=== PATIENT | female | born 1945 | race Caucasian/White ===

== ENCOUNTER 2016-08-31 15:59 | Inpatient (IN) | payer OTHER, MEDICARE ==
[~2016-08-31] VITALS: Ht 172.7 cm; Wt 139.8 kg
[~2016-08-31 15:59] MED LIST: ADVA250A INH; AMIT10 PO; ASPI81TA11 PO; B-12100T2 PO; B-650TAB2 PO; CITA20TA4 PO; COZA100T PO; CYCL-36 PO; EPIP0.3I IM; FLOV50AE INH; FOLI200T PO; GABA300C3 PO; GLIP5 OR; HYDR-2768 PO; LEVA1.2519 NEB; LEVO100T75 PO; MELO7.5 PO; METH2.5 PO; MONT10TA2 PO; PRED5TAB PO; PROT40TA PO; RANI150C PO; TEMA15CA PO; TESS200C PO; TOPA25TA8 PO; TOPR50TA PO; ULTR50TA PO; XANA0.5T PO; XOPE0.63 INH; ZYRT10TA12 PO
[2016-08-31 16:31] VITALS: BP 211/71; PULSE 78; RESP 16; TEMP 99.2; O2SAT 97
[2016-08-31] MEDS ORDERED: LEVO150T7 PO (17:10)
[2016-08-31] MEDS ORDERED: ALPR.25 PO (17:10)
[2016-08-31] MEDS ORDERED: MONT10TA2 PO (17:10)
[2016-08-31] MEDS ORDERED: FLUT50SP EACH NARE (17:10)
[2016-08-31] MEDS ORDERED: [UNRECOGNIZED DRUG - CODE] EACH NARE (17:10)
[2016-08-31] MEDS ORDERED: LACROIN EACH EYE (17:10)
[2016-08-31] MEDS ORDERED: METH5INJ IM (17:10)
[2016-08-31] MEDS ORDERED: ROPI.5 PO (17:10)
[2016-08-31] MEDS ORDERED: PRIL20CA9 PO (17:10)
[2016-08-31] MEDS ORDERED: AMAR4TAB PO (17:10)
[2016-08-31] MEDS ORDERED: TOPA25TA8 PO (17:10)
[2016-08-31] MEDS ORDERED: ADVA250A INH (17:10)
[2016-08-31] MEDS ORDERED: ZANT150T2 PO (17:10)
[2016-08-31] MEDS ORDERED: XOPEAER4 INH (17:10)
[2016-08-31] MEDS ORDERED: METO-309 PO (17:10)
[2016-08-31] MEDS ORDERED: MORP1TAB24 PO (17:10)
[2016-08-31] MEDS ORDERED: LYRI100C PO (17:10)
[2016-08-31] MEDS ORDERED: VITACAP7 PO (17:10)
[2016-08-31] MEDS ORDERED: CYMB60CA PO (17:10)
[2016-08-31] MEDS ORDERED: TIZA4TAB PO (17:10)
[2016-08-31] MEDS ORDERED: LOSA100T PO (17:10)
[2016-08-31] MEDS ORDERED: TOPA100T11 PO (17:10)
[2016-08-31] MEDS ORDERED: PRED1 PO (17:10)
[2016-08-31] MEDS ORDERED: FOLI5CAP PO (17:10)
[2016-08-31] MEDS ORDERED: ASPI1TAB69 PO (17:10)
[2016-08-31] MEDS ORDERED: EYE-TAB2 (17:10)
[2016-08-31] MEDS ORDERED: CALCTAB44 PO (17:10)
[2016-08-31] MEDS ORDERED: SODIUM CHLORIDE 0.9% FLUSH 5 ML FLUSH IVF PRN ×2 (17:15→19:30)
[2016-08-31 17:37] LABS: AUTOMATED NEUTROPHIL # 8.5 TH/MM3 (1.8-7.7); BASOPHIL # 0.1 TH/MM3 (0-0.2); BASOPHIL % 0.6 % (0.0-2.0); EOSINOPHIL # 0.6 TH/MM3 (0-0.4); EOSINOPHIL % 4.8 % (0.0-4.0); HEMATOCRIT 40.2 % (35.0-46.0); HEMO FLAGS DIFF FINAL; LYMPH % 23.7 % (9.0-44.0); MEAN CELL VOLUME 94.1 FL (80.0-100.0); MEAN CORPUSCULAR HEMOGLOBIN 31.6 PG (27.0-34.0); MEAN CORPUSCULAR HGB CONC 33.6 % (32.0-36.0); MONO % 3.7 % (0.0-8.0); NEUT % 67.2 % (16.0-70.0); PLATELET COUNT 228 TH/MM3 (150-450); RED BLOOD COUNT 4.27 MIL/MM3 (4.00-5.30); RED CELL DISTRIBUTION WIDTH 12.7 % (11.6-17.2); WHITE BLOOD COUNT 12.7 TH/MM3 (4.0-11.0)
[2016-08-31 17:48] LABS: CHLORIDE 108 MEQ/L (98-107); POTASSIUM 3.3 MEQ/L (3.5-5.1); SODIUM (NA) 144 MEQ/L (136-145)
[2016-08-31 17:52] LABS: PROTHROMBIN TIME - PATIENT 10.9 SEC (9.8-11.6)
[2016-08-31 17:53] LABS: ANION GAP 11 MEQ/L (5-15); BICARBONATE 25.5 MEQ/L (21.0-32.0); BLOOD UREA NITROGEN 11 MG/DL (7-18)
--- NOTE | 2016-08-31 17:55 | RADHPO ---
EXAM DATE/TIME: 08/31/2016 17:33 [facility] COMPARISON: No previous studies available for comparison. INDICATIONS : Dizziness. Evaluate for cerebrovascular accident. RADIATION DOSE: 62.61 CTDIvol (mGy) MEDICAL HISTORY : Hypertension. Diabetes mellitus type 2. SURGICAL HISTORY : None. ENCOUNTER: Initial ACUITY: 1 day PAIN SCALE: 6/10 LOCATION: cranial TECHNIQUE: Multiple contiguous axial images were obtained of the head. Using automated exposure control and adj ustment of the mA and/or kV according to patient size, radiation dose was kept as low as reasonably a chievable to obtain optimal diagnostic quality images. FINDINGS: CEREBRUM: The ventricles are normal for age. No evidence of midline shift, mass lesion, hemorrhage or acute in farction. No extra-axial fluid collections are seen. POSTERIOR FOSSA: The cerebellum and brainstem are intact. The 4th ventricle is midline. The cerebellopontine angle i s unremarkable. EXTRACRANIAL: The visualized portion of the orbits is intact. SKULL: The calvaria is intact. No evidence of skull fracture. CONCLUSION: Age-appropriate atrophy. No acute findings. Derick Cordova MD on August 31, 2016 at 17:53 Board Certified Radiologist. This report was verified electronically.
[2016-08-31 17:56] LABS: ALT (GPT) 44 U/L (10-53); AST (GOT) 13 U/L (15-37); GLOMERULAR FILTRATION RATE 64 ML/MIN (>89)
[2016-08-31 17:57] LABS: TOTAL BILIRUBIN ADULT 0.6 MG/DL (0.2-1.0)
[2016-08-31 17:59] LABS: ALKALINE PHOSPHATASE 209 U/L (45-117)
[2016-08-31 18:21] VITALS: BP 184/85; PULSE 83; RESP 16; O2SAT 97
[2016-08-31] MEDS ORDERED: ONDANSETRON HCL 4 MG/2 ML VIAL IV ONE (18:30)
[2016-08-31 19:00] VITALS: BP 177/84; PULSE 76; RESP 16; O2SAT 96
--- NOTE | 2016-08-31 19:01 | PD ---
HPI Chief Complaint: Neuro Symptoms/ Deficits Time Seen by Provider: 17:09 Travel History International Travel<30 days: No Contact w/Intl Traveler<30days: No Traveled to known affect area: No History of Present Illness HPI This 71-year-old woman who presents to the emergency department complaining of feeling sick all week, and then today while sitting out had the abrupt onset of bilateral upper extremity paresthesias, numbness and tingling around her face, feeling fuzzy, and having expressive aphasia. Symptoms lasted about 30 minutes or so. Blood pressure is been elevated since that time all day in the 160s to 180s over 100s. She otherwise had been feeling K. She developed some diarrhea this morning she describes as some slightly loose stools. She took some Lomotil after that and hasn't had any recurrence. Stomach has been a little bit queasy. No chest pain. She did have some palpitations when she laid back down after the episode. She otherwise had been feeling generally well and healthy. 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 Hypertension GERD Asthma Fibromyalgia Tetanus Vaccination: < 5 Years Menopausal: Yes Social History Alcohol Use: No Tobacco Use: No (quit 1989) Allergies-Medications (Allergen,Severity, Reaction): Coded Allergies: Codeine (Verified Allergy, Severe, HIVES/SHORTNESS OF BREATH/ITCHING, 08/31) ABLE TO TAKE MORPHINE AND TRAMADOL BUT NOT ANY OTHER PAIN MEDS PER P.A./PATIENT Common Ragweed (Verified Allergy, Severe, 08/31/16) Cultivated Oat Pollen (Verified Allergy, Severe, 08/31/16) Dust (Verified Allergy, Severe, 08/31/16) Gentamicin (Verified Allergy, Severe, 08/31/16) Iodine (Verified Allergy, Severe, 08/31/16) Molds and Smuts (Verified Allergy, Severe, 08/31/16) Penicillin (Verified Allergy, Severe, 08/31/16) Shellfish (Verified Allergy, Severe, 08/31/16) Tetracycline (Verified Allergy, Severe, 08/31/16) Vancomycin (Verified Allergy, Severe, 08/31/16) [place] (Verified Allergy, Severe, 08/31/16) Reported Meds & Prescriptions Reported Meds & Active Scripts Active Reported Morphine ER (Morphine Sulfate) 15 Mg Tab 15 Mg PO BID Xopenex Hfa 15 GM Inh (Levalbuterol 15 GM Inh) 45 Mcg/Act Aer 90 Mcg INH Q6HR PRN Shake well before using. (1 puff = 45 mcg) Advair Diskus Inh (Fluticasone-Salmeterol Inh) 250-50 Mcg/Blist Aer 1 Puff INH DAILY Rinse mouth after use. Refresh Lacri-Lube Opth Ointment (Artificial Tear Opth Ointment) 1 Oint EACH EYE HS Xanax (Alprazolam) 0.25 Mg Tab 0.25 Mg PO BID PRN Requip (Ropinirole HCl) 0.5 Mg Tab 0.5 Mg PO HS Lopressor (Metoprolol Tartrate) 50 Mg Tab 50 Mg PO HS Singulair (Montelukast Sodium) 10 Mg Tab 10 Mg PO DAILY Methotrexate Inj 50 Mg/2 Ml Inj 15 Mg IM WEEKLY Prednisone 1 Mg Tab 3 Mg PO DAILY Calcium Citrate+ D (Calcium Citrate-Vitamin D) 250-200 Mg-Unit Tab 2 Tab PO BID Folic Acid 5 Mg Cap 2 Mg PO DAILY Eye-Vites (Multiple Vitamins W/ Minerals) 1 Tab Tab B Complex (B-Complex Vitamins) 1 Cap 1 Cap PO DAILY Topamax (Topiramate) 100 Mg Tab 100 Mg PO HS Topamax (Topiramate) 25 Mg Tab 25 Mg PO DAILY Lyrica (Pregabalin) 100 Mg Cap 100 Mg PO BID Zantac (Ranitidine HCl) 150 Mg Tab 150 Mg PO HS Tizanidine (Tizanidine HCl) 4 Mg Tab 4 Mg PO BID PRN Afrin Saline Nasal Mist (Sodium Chloride) 0.65% [place] 2 [place] EACH NARE DIRECTED Fluticasone Nasal [place] 50 Mcg/Act Naspr 50 Mcg EACH NARE DAILY 50 mcg/spray Amaryl (Glimepiride) 4 Mg Tab 4 Mg PO BID Take with breakfast or the first main meal Cymbalta DR (Duloxetine HCl) 60 Mg Capdr 60 Mg PO BID Levothyroxine (Levothyroxine Sodium) 150 Mcg Tab 150 Mcg PO DAILY Losartan (Losartan Potassium) 100 Mg Tab 100 Mg PO DAILY Aspirin 81 Mg Tabdr 81 Mg PO HS Prilosec (Omeprazole) 20 Mg Cap 40 Mg PO DAILY Review of Systems Except as stated in HPI: all other systems reviewed are Neg Physical Exam Narrative GENERAL: Obese 71-year-old woman, no acute distress. SKIN: Warm and dry. HEAD: Atraumatic. Normocephalic. EYES: Pupils equal and round. No scleral icterus. No injection or drainage. ENT: No nasal bleeding or discharge. Mucous membranes pink and moist. NECK: Trachea midline. No JVD. CARDIOVASCULAR: Regular rate and rhythm. No murmur appreciated. RESPIRATORY: No accessory muscle use. Clear to auscultation. Breath sounds equal bilaterally. GASTROINTESTINAL: Abdomen soft, non-tender, nondistended. Hepatic and splenic margins not palpable. MUSCULOSKELETAL: No obvious deformities. No edema. NEUROLOGICAL: Awake and alert. No obvious cranial nerve deficits. No facial asymmetry. Motor strength full and equal upper and lower extremities. Normal finger to nose. She describes some asymmetry of sensation especially in her right upper extremity being a little bit decreased. PSYCHIATRIC: Appropriate mood and affect; insight and judgment normal. Data Data Last Documented VS Vital Signs Date Time Temp Pulse Resp B/P Pulse Ox O2 Delivery O2 Flow Rate FiO2 08/31/16 18:21 83 16 184/85 97 Room Air 08/31/16 16:31 99.2 Orders Prothrombin Time / Inr (Pt) (08/31/16 17:09) Act Partial Throm Time (Ptt) (08/31/16 17:09) Complete Blood Count With Diff (08/31/16 17:09) Comprehensive Metabolic Panel (08/31/16 17:09) Troponin I (08/31/16 17:09) Ct Brain W/O Iv Contrast(Rout) (08/31/16 17:09) Ecg Monitoring (08/31/16 17:09) Iv Access Insert/Monitor (08/31/16 17:09) Oximetry (08/31/16 17:09) Sodium Chloride 0.9% Flush (Ns Flush) (08/31/16 17:15) Ondansetron Inj (Zofran Inj) (08/31/16 18:30) Bedside Glucose LUCA.AC&HS (08/31/16 19:22) ^ Blood Glucose Goal (Criteria (08/31/16 19:22) ^ Hypoglycemia 51 - 69 Mg/Dl (08/31/16 19:22) ^ Hypoglycemia 50 Mg/Dl Or < (08/31/16 19:22) ^ Notify Dr: Other (08/31/16 19:22) Dextrose 50% In Roly (Vial) Inj (D50w (Vi (08/31/16 19:30) Glucagon Inj (Glucagon Inj) (08/31/16 19:30) Insulin Aspart Supplemtl Scale (Novolog (08/31/16 21:00) Admit To Inpatient (08/31/16 ) Code Status (08/31/16 19:22) Vital Signs (Adult) Q4H (08/31/16 19:22) Nih Stroke Scale - Nihss .On admission and discharge (08/31/16 19:22) Neuro Checks Q2HX12,Q4H (08/31/16 19:22) Ot Request For Service (08/31/16:) Consult Pt Eval & Treat (08/31/16:22) Case Management Consult (08/31/16 ) Nursing Bedside Swallow Assess .ONCE (08/31/16 19:22) Scd Bilateral/Knee High LUCA.QSHIFT (08/31/16:22) Hemoglobin (Hgb) A1c (09/01/16 06:00) Lipid Profile (09/01/16 06:00) Mra Brain W/O Contrast (Cow) (08/31/16 ) Mri Brain W/O Contrast (08/31/16 ) Echo 2d Comp W/Dopp(Routine) (08/31/16 ) Resp Oxygen Steffen C Titrat 1-4 L (08/31/16 ) ^ Hold Medication (08/31/16:22) Sodium Chloride 0.9% Flush (Ns Flush) (08/31/16 21:00) Sodium Chloride 0.9% Flush (Ns Flush) (08/31/16 19:30) Sodium Chlor 0.9% 1000 Ml Inj (Ns 1000 M (08/31/16 19:22) Enalaprilat Inj (Vasotec Inj) (08/31/16 19:30) Pravastatin (Pravachol) (08/31/16 21:00) Bedside Glucose LUCA.AC&HS (08/31/16:22) Technical Project Lead / Telemetry LUCA.Q8H (08/31/16 19:22) Scd Bilateral/Knee High LUCA.BID (08/31/16 19:22) Curtis Bilateral/Knee High LUCA.QSHIFT (08/31/16 19:22) Inpatient Certification (08/31/16 ) Alprazolam (Xanax) (08/31/16 19:30) Aspirin Ec (Ecotrin Ec) (08/31/16 21:00) Duloxetine Dr (Germán Schultz) (08/31/16 21:00) Fluticasone Steffen Spr (Flonase Steffen Spr) (09/01/16 09:00) Folic Acid (Folate) (09/01/16 09:00) Levothyroxine (Synthroid) (09/01/16 06:00) Montelukast (Singulair) (09/01/16 09:00) Morphine Sr (Oramorph Sr) (08/31/16 21:00) Prednisone (Deltasone) (09/01/16 09:00) Pregabalin (Lyrica) (08/31/16 21:00) Ropinirole Hcl (Requip) (08/31/16 21:00) Tizanidine Hcl (Zanaflex) (08/31/16 19:30) Topiramate (Topamax) (09/01/16 09:00) Topiramate (Topamax) (08/31/16 21:00) Budeson-Formot 160-4.5 Mg Inh (Symbicort (09/01/16 09:00) Patient Own Medication (08/31/16 19:45) Neuro Checks Q4H (08/31/16 19:27) Activity Oob With Assistance (08/31/16 19:27) Diet 1800 Ada Cons Carb (09/01/16 Breakfast) Ondansetron Inj (Zofran Inj) (08/31/16 19:30) Bisacodyl Supp (Dulcolax Supp) (08/31/16 19:30) Comprehensive Metabolic Panel (09/01/16 06:00) Complete Blood Count With Diff (09/01/16 06:00) Scd Bilateral/Knee High LUCA.BID (08/31/16 19:27) Curtis Bilateral/Knee High LUCA.QSHIFT (08/31/16 19:27) Acetaminophen (Tylenol) (08/31/16 19:30) Famotidine (Pepcid) (08/31/16 21:00) Admit Order (Ed Use Only) (08/31/16 ) Labs Laboratory Tests Test 08/31/16 17:25 White Blood Count 12.7 TH/MM3 Red Blood Count 4.27 MIL/MM3 Hemoglobin 13.5 GM/DL Hematocrit 40.2 % Mean Corpuscular Volume 94.1 FL Mean Corpuscular Hemoglobin 31.6 PG Mean Corpuscular Hemoglobin 33.6 % Concent Red Cell Distribution Width 12.7 % Platelet Count 228 TH/MM3 Mean Platelet Volume 8.6 FL Neutrophils (%) (Auto) 67.2 % Lymphocytes (%) (Auto) 23.7 % Monocytes (%) (Auto) 3.7 % Eosinophils (%) (Auto) 4.8 % Basophils (%) (Auto) 0.6 % Neutrophils # (Auto) 8.5 TH/MM3 Lymphocytes # (Auto) 3.0 TH/MM3 Monocytes # (Auto) 0.5 TH/MM3 Eosinophils # (Auto) 0.6 TH/MM3 Basophils # (Auto) 0.1 TH/MM3 CBC Comment DIFF FINAL Differential Comment Prothrombin Time 10.9 SEC Prothromb Time International 1.0 RATIO Ratio Activated Partial 27.0 SEC Thromboplast Time Sodium Level 144 MEQ/L Potassium Level 3.3 MEQ/L Chloride Level 108 MEQ/L Carbon Dioxide Level 25.5 MEQ/L Anion Gap 11 MEQ/L Blood Urea Nitrogen 11 MG/DL Creatinine 0.87 MG/DL Estimat Glomerular Filtration 64 ML/MIN Rate Random Glucose 145 MG/DL Calcium Level 8.7 MG/DL Total Bilirubin 0.6 MG/DL Aspartate Amino Transf 13 U/L (AST/SGOT) Alanine Aminotransferase 44 U/L (ALT/SGPT) Alkaline Phosphatase 209 U/L Troponin I LESS THAN 0.02 NG/ML Total Protein 7.2 GM/DL Albumin 3.5 GM/DL [facility] Medical Decision Making Medical Screen Exam Complete: Yes Emergency Medical Condition: Yes Interpretation(s) My review of EKG: Normal sinus rhythm at a rate of 77, normal axis, normal intervals, some nonspecific inferolateral ST depressions. LABS: CBC remarkable for mild leukocytosis. CMP generally unremarkable. Troponin negative. Coags unremarkable. CT head: Negative. Differential Diagnosis TIA, electrolyte abnormality, ACS, hyperventilation or anxiety, other Narrative Course Medical decision making 71-year-old with unusual episode of upper extremity paresthesias, word finding difficulties and expressive aphasia, feeling ill. Multiple other concomitant symptoms including feeling generally weak, some diarrhea this morning, and some palpitations. EKG shows some nonspecific lateral ST changes, but history is otherwise not suggestive of ACS. Troponin is negative. A lecture lites are unremarkable. The question of whether or not this could've been the TIAs a little bit unclear. She had expressive aphasia but also had bilateral pressure any paresthesias which would be unusual. Nonetheless given her elevated blood pressure diabetes increased age and presence of a fascia as well as a time course of symptoms, she would be at moderate risk for short term recurrence of CVA by her ABCD 2 score. Given this, would recommend admission for observation further evaluation for TIA. Diagnosis Primary Impression: Altered mental status Qualified Code: R40.4 - Transient alteration of awareness Additional Impression: TIA (transient ischemic attack) Qualified Code: G45.9 - Transient cerebral ischemia, unspecified type Ish Emmanuel MD Aug 31, 2016 19:01
[2016-08-31] MEDS ORDERED: DEXTROSE 50% IN WATER 50 ML VIAL(D50) IV PUSH PRN (19:30)
[2016-08-31] MEDS ORDERED: ALPRAZolam 0.25 MG TAB PO PRN (19:30)
[2016-08-31] MEDS ORDERED: ACETAMINOPHEN 325 MG TAB PO PRN (19:30)
[2016-08-31] MEDS ORDERED: GLUCAGON 1 MG/ML VIAL OTHER PRN (19:30)
[2016-08-31] MEDS ORDERED: ENALAPRILAT 1.25 MG/ML VIAL IV PRN (19:30)
[2016-08-31] MEDS ORDERED: ONDANSETRON HCL 4 MG/2 ML VIAL IVP PRN (19:30)
[2016-08-31] MEDS ORDERED: BISACODYL 10 MG SUPP PR PRN (19:30)
[2016-08-31] MEDS ORDERED: LEVALBUTEROL PO PRN (19:45)
[2016-08-31] MEDS: INSULIN ASPART SUPPLEMENTAL SCALE SQ SCH (21:00)
[2016-08-31] MEDS ORDERED: PRAVASTATIN SOD 40 MG TAB PO SCH (21:00)
[2016-08-31] MEDS ORDERED: TOPIRAMATE 100 MG TAB PO SCH (21:00)
[2016-08-31] MEDS ORDERED: FAMOTIDINE 20 MG TAB PO SCH (21:00)
[2016-08-31] MEDS ORDERED: ASPIRIN EC 81 MG TABEC PO SCH (21:00)
[2016-08-31 21:05] VITALS: O2SAT 96
[2016-08-31] MEDS: SODIUM CHLORIDE 0.9% FLUSH 5 ML FLUSH IVF SCH (21:23)
[2016-08-31] MEDS: MORPHINE SULFATE 15 MG CONTROLLED RELEASE TAB PO SCH (21:25)
[2016-08-31] MEDS: PREGABALIN 100 MG CAP PO SCH (21:25)
[2016-08-31] MEDS: DULoxetine HCl DR 60 MG CAP PO SCH (21:26)
[2016-08-31] MEDS: SODIUM CHLOR 0.9% 1000 ML INJ 1,000 ML IV SCH (21:59)
[2016-08-31 22:00] VITALS: BP 200/84; PULSE 90; RESP 16; O2SAT 97
[2016-08-31 23:00] VITALS: BP 195/71; PULSE 88; RESP 16; O2SAT 95
[2016-09-01] VITALS (10 sets, daily range): BP systolic 140–187; BP diastolic 74–94; PULSE 77–94; RESP 16–20; TEMP 97.7–98.9; O2SAT 94–98
[2016-09-01] MEDS: INSULIN ASPART SUPPLEMENTAL SCALE SQ SCH ×3 (05:24→16:00)
[2016-09-01] MEDS ORDERED: LEVOTHYROXINE SODIUM 150 MCG TAB PO SCH (06:00)
[2016-09-01 08:16] LABS: AUTOMATED NEUTROPHIL # 6.3 TH/MM3 (1.8-7.7); BASOPHIL % 0.3 % (0.0-2.0); EOSINOPHIL # 0.4 TH/MM3 (0-0.4); EOSINOPHIL % 4.2 % (0.0-4.0); HEMATOCRIT 37.7 % (35.0-46.0); HEMO FLAGS DIFF FINAL; LYMPH % 24.5 % (9.0-44.0); LYMPHOCYTE # 2.3 TH/MM3 (1.0-4.8); MEAN CELL VOLUME 96.2 FL (80.0-100.0); MEAN CORPUSCULAR HEMOGLOBIN 32.3 PG (27.0-34.0); MEAN CORPUSCULAR HGB CONC 33.5 % (32.0-36.0); MONO % 5.7 % (0.0-8.0); NEUT % 65.3 % (16.0-70.0); PLATELET COUNT 197 TH/MM3 (150-450); RED BLOOD COUNT 3.92 MIL/MM3 (4.00-5.30); RED CELL DISTRIBUTION WIDTH 13.3 % (11.6-17.2); WHITE BLOOD COUNT 9.5 TH/MM3 (4.0-11.0)
[2016-09-01 08:18] LABS: CHLORIDE 110 MEQ/L (98-107); POTASSIUM 3.3 MEQ/L (3.5-5.1); SODIUM (NA) 144 MEQ/L (136-145)
[2016-09-01] MEDS: PREGABALIN 100 MG CAP PO SCH (08:24)
[2016-09-01] MEDS: DULoxetine HCl DR 60 MG CAP PO SCH (08:25)
[2016-09-01] MEDS: MORPHINE SULFATE 15 MG CONTROLLED RELEASE TAB PO SCH (08:25)
[2016-09-01 08:38] LABS: ALKALINE PHOSPHATASE 217 U/L (45-117); ALT (GPT) 106 U/L (10-53); ANION GAP 9 MEQ/L (5-15); AST (GOT) 112 U/L (15-37); BICARBONATE 25.3 MEQ/L (21.0-32.0); BLOOD UREA NITROGEN 11 MG/DL (7-18); GLOMERULAR FILTRATION RATE 63 ML/MIN (>89); TOTAL BILIRUBIN ADULT 0.7 MG/DL (0.2-1.0)
[2016-09-01] MEDS ORDERED: FOLIC ACID 1 MG TAB PO SCH (09:00)
[2016-09-01] MEDS ORDERED: TOPIRAMATE 25 MG TAB PO SCH (09:00)
[2016-09-01] MEDS ORDERED: MONTELUKAST SODIUM 10 MG TAB PO SCH (09:00)
[2016-09-01] MEDS ORDERED: FLUTICASONE PROPIONATE 50 MCG/ACT 16 GM NASAL SPRAY EACH NARE SCH (09:00)
[2016-09-01] MEDS ORDERED: predniSONE 1 MG TAB PO SCH (09:00)
[2016-09-01] MEDS ORDERED: BUDESONIDE-FORMOTEROL 160/4.5 MCG INHALER INH SCH (09:00)
[2016-09-01] MEDS: SODIUM CHLORIDE 0.9% FLUSH 5 ML FLUSH IVF SCH (10:04)
[2016-09-01] MEDS: SODIUM CHLOR 0.9% 1000 ML INJ 1,000 ML IV SCH (10:05)
[2016-09-01 10:26] LABS: HDL CHOLESTEROL 35.8 MG/DL (40.0-60.0); LDL CHOLESTEROL 68 MG/DL (0-99)
--- NOTE | 2016-09-01 11:51 | HHI.HP ---
[facility] Service [facility] Primary Care Physician Minnie Cavazos MD Admission Diagnosis TIA Diagnoses: Chief Complaint: Trouble speaking and dizzy Travel History International Travel<30 Days: No Contact w/Intl Traveler <30 Da: No Traveled to Known Affected Are: No History of Present Illness This patient is a 71-year-old female with a history of diabetes and hypertension who did have episodes of loose stool and felt lightheaded and dizzy. Around that time she began having some trouble speaking and her recommend she sit down. The patient says she felt buzzing was pale and had some expressive aphasia with associated elevated blood pressures in the 190s over 102 range. She took her home medicines losartan and Xanax to improve her symptoms. Patient had no fevers or chills. Total symptoms lasted about 30 minutes. She called her primary doctor who instructed her to come to the hospital. On arrival here her blood pressure was elevated at 211/71. The patient's symptoms of expressive aphasia had resolved by this time however the patient was complaining of that, bilateral upper extremity paresthesias and numbness and tingling around her face. Patient was recommended for observation the hospital due to TIA versus stroke with accelerated hypertension. Review of Systems Constitutional: DENIES: Diaphoretic episodes, Fatigue, Fever, Weight gain, Weight loss, Chills, Dizziness, Change in appetite, Night Sweats Endocrine: DENIES: Abnorml menstrual pattern, Heat/cold intolerance, Polydipsia , Polyuria, Polyphagia Eyes: DENIES: Blurred vision, Diplopia, Eye inflammation, Eye pain, Vision loss , Photosensitivity, Double Vision Ears, nose, mouth, throat: DENIES: Tinnitus, Hearing loss, Vertigo, Nasal discharge, Oral lesions, Throat pain, Hoarseness, Ear Pain, Running Nose, Epistaxis, Sinus Pain, Toothache, Odynophagia Respiratory: DENIES: Apneas, Cough, Snoring, Wheezing, Hemoptysis, Sputum production, Shortness of breath Cardiovascular: DENIES: Chest pain, Palpitations, Syncope, Dyspnea on Exertion , PND, Lower Extremity Edema, Orthopnea, Claudication Gastrointestinal: COMPLAINS OF: Diarrhea, DENIES: Abdominal pain, Black stools , Bloody stools, Constipation, Nausea, Vomiting, Difficulty Swallowing, Anorexia Genitourinary: DENIES: Abnormal vaginal bleeding, Dysmenorrhea, Dyspareunia, Sexual dysfunction, Urinary frequency, Urinary incontinence, Urgency, Hematuria , Dysuria, Nocturia, Vaginal discharge Musculoskeletal: COMPLAINS OF: Joint pain, Back pain, DENIES: Muscle aches, Stiffness, Joint Swelling, Neck pain Hematologic/lymphatic: DENIES: Bruising, Lymphadenopathy Immunologic/allergic: DENIES: Eczema, Urticaria Neurologic: COMPLAINS OF: Abnormal gait (uses a walker at baseline), Headache ( recurrent migraines), Paresthesias, Speech Problems, DENIES: Localized weakness , Seizures, Tremor, Poor Balance Psychiatric: DENIES: Anxiety, Confusion, Mood changes, Depression, Hallucinations, Agitation, Suicidal Ideation, Homicidal Ideation, Delusions Past Family Social History Past Medical History Obesity with a BMI of 46.9 Diabetes mellitus type 2 Hypothyroidism His cranial pneumatosis Hypertension GERD Asthma COPD Fibromyalgia Chronic pain History of migraines Polypharmacy Past Surgical History Cholecystectomy Appendectomy Reported Medications Reviewed in the medical record Allergies: Coded Allergies: Codeine (Verified Allergy, Severe, HIVES/SHORTNESS OF BREATH/ITCHING, 08/31) ABLE TO TAKE MORPHINE AND TRAMADOL BUT NOT ANY OTHER PAIN MEDS PER P.A./PATIENT Common Ragweed (Verified Allergy, Severe, 08/31/16) Cultivated Oat Pollen (Verified Allergy, Severe, 08/31/16) Dust (Verified Allergy, Severe, 08/31/16) Gentamicin (Verified Allergy, Severe, 08/31/16) Iodine (Verified Allergy, Severe, 08/31/16) Molds and Smuts (Verified Allergy, Severe, 08/31/16) Penicillin (Verified Allergy, Severe, 08/31/16) Shellfish (Verified Allergy, Severe, 08/31/16) Tetracycline (Verified Allergy, Severe, 08/31/16) Vancomycin (Verified Allergy, Severe, 08/31/16) [place] (Verified Allergy, Severe, 08/31/16) Active Ordered Medications Reviewed in the medical record Family History Hypertension 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, 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 Physical Exam Vital Signs Vital Signs Date Time Temp Pulse Resp B/P Pulse Ox O2 Delivery O2 Flow Rate FiO2 09/01/16 08:00 21 09/01/16 08:00 97.9 77 19 155/79 98 09/01/16 04:00 98.6 93 20 175/93 98 09/01/16 03:00 94 09/01/16 02:00 98.9 93 18 184/93 98 09/01/16 01:00 90 16 187/74 94 Room Air 09/01/16 00:00 88 16 169/74 95 Room Air 08/31/16 23:30 16 95 08/31/16 23:00 88 16 195/71 95 Room Air 08/31/16 22:40 16 08/31/16 22:40 16 08/31/16 22:00 90 16 200/84 97 Room Air 08/31/16 21:05 96 21 08/31/16 19:10 16 97 08/31/16 19:00 76 16 177/84 96 Room Air 08/31/16 18:21 83 16 184/85 97 Room Air 08/31/16 18:21 83 16 184/85 97 Room Air 08/31/16 16:31 99.2 78 16 211/71 97 Physical Exam GENERAL: This is a obese, well-developed patient, in no apparent distress. SKIN: No rashes, ecchymoses or lesions. Cool and dry. HEAD: Atraumatic. Normocephalic. No temporal or scalp tenderness. EYES: Pupils equal round and reactive. Extraocular motions intact. No scleral icterus. No injection or drainage. ENT: Nose without bleeding, purulent drainage or septal hematoma. Throat without erythema, tonsillar hypertrophy or exudate. Uvula midline. Airway patent. NECK: Trachea midline. No JVD or lymphadenopathy. Supple, nontender, no meningeal signs. CARDIOVASCULAR: Regular rate and rhythm without murmurs, gallops, or rubs. RESPIRATORY: Clear to auscultation. Breath sounds equal bilaterally. No wheezes , rales, or rhonchi. GASTROINTESTINAL: Abdomen soft, non-tender, nondistended. No hepato-splenomegaly , or palpable masses. No guarding. MUSCULOSKELETAL: Extremities without clubbing, cyanosis, or edema. No joint tenderness, effusion, or edema noted. No calf tenderness. Negative Homans sign bilaterally. NEUROLOGICAL: Awake and alert. Cranial nerves II through XII intact. Motor and sensory grossly within normal limits. Five out of 5 muscle strength in all muscle groups. Normal speech. Laboratory Laboratory Tests Test 08/31/16 09/01/16 17:25 07:45 White Blood Count 12.7 9.5 Red Blood Count 4.27 3.92 Hemoglobin 13.5 12.6 Hematocrit 40.2 37.7 Mean Corpuscular Volume 94.1 96.2 Mean Corpuscular Hemoglobin 31.6 32.3 Mean Corpuscular Hemoglobin 33.6 33.5 Concent Red Cell Distribution Width 12.7 13.3 Platelet Count 228 197 Mean Platelet Volume 8.6 8.7 Neutrophils (%) (Auto) 67.2 65.3 Lymphocytes (%) (Auto) 23.7 24.5 Monocytes (%) (Auto) 3.7 5.7 Eosinophils (%) (Auto) 4.8 4.2 Basophils (%) (Auto) 0.6 0.3 Neutrophils # (Auto) 8.5 6.3 Lymphocytes # (Auto) 3.0 2.3 Monocytes # (Auto) 0.5 0.5 Eosinophils # (Auto) 0.6 0.4 Basophils # (Auto) 0.1 0.0 CBC Comment DIFF FINAL DIFF FINAL Differential Comment Prothrombin Time 10.9 Prothromb Time International 1.0 Ratio Activated Partial 27.0 Thromboplast Time Sodium Level 144 144 Potassium Level 3.3 3.3 Chloride Level 108 110 Carbon Dioxide Level 25.5 25.3 Anion Gap 11 9 Blood Urea Nitrogen 11 11 Creatinine 0.87 0.88 Estimat Glomerular Filtration 64 63 Rate Random Glucose 145 168 Calcium Level 8.7 7.7 Total Bilirubin 0.6 0.7 Aspartate Amino Transf 13 112 (AST/SGOT) Alanine Aminotransferase 44 106 (ALT/SGPT) Alkaline Phosphatase 209 217 Troponin I LESS THAN 0.02 Total Protein 7.2 6.0 Albumin 3.5 2.9 Triglycerides Level 137 Cholesterol Level 131 LDL Cholesterol 68 HDL Cholesterol 35.8 Cholesterol/HDL Ratio 3.65 Result Diagram: 09/01/16 0745 09/01/16 0745 Imaging Last Impressions Head CT 08/31/16 [id number] Signed Impressions: Service Date/Time: August 17:33 - CONCLUSION: Age-appropriate atrophy. No acute findings. Derick Cordova MD Assessment and Plan Problem List: (1) TIA (transient ischemic attack) ICD Code: G45.9 Status: Acute Plan: Follow-up MRI/MRA Rehabilitation efforts with OT/ST/PT aphasia on admission (2) LFT elevation ICD Code: R94.5 Status: Acute Plan: Patient with a history of fatty liver. We'll continue to follow ultrasound today. Previous workup by primary doctor shows fatty liver and patient has multiple medications which can cause liver toxicity. (3) HTN (hypertension) ICD Code: I10 Status: Acute Plan: Uncontrolled. Patient will continue with home blood pressure medicines for now. No evidence of stroke at this time Assessment and Plan Patient's other problems including fibromyalgia, COPD, Cortney's granulomatosis , hypertension, asthma, diabetes appears stable and she will continue her home medications. Code Status Full code Discussed Condition With Patient, Alvaro MABRY Problem Qualifiers (1) TIA (transient ischemic attack): Qualified Code: G45.9 - Transient cerebral ischemia, unspecified type Trang Castañeda MD Sep 01, 2016 11:51
--- NOTE | 2016-09-01 13:49 | RADHPO ---
EXAM DATE/TIME: 09/01/2016 12:23 [facility] COMPARISON: No previous studies available for comparison. INDICATIONS : TIA. Upper extremity and facial numbness. Aphasia. MEDICAL HISTORY : Hypertension. Diabetes. SURGICAL HISTORY : Cholecystectomy. Tonsillectomy. Appendectomy. Left TKA. Cataract removal. ENCOUNTER: Subsequent ACUITY: 2 day PAIN SCORE: 0/10 LOCATION: cranial TECHNIQUE: Multiplanar, multisequence MRI of the brain was performed without contrast. FINDINGS: There are scattered areas of high signal intensity in the periventricular white matter. There is no restricted diffusion evident. There is no parenchymal hemorrhage, acute infarction or mass lesion. There are n o extraaxial fluid collections appreciated. Ventricular size is appropriate. Portion of orbits and paranasal sinuses visualized unremarkable. CONCLUSION: Mild periventricular white matter changes, otherwise negative. I do not see evidence for an acute is chemic event. Damien Nascimento MD FACR on September 01, 2016 at 13:28 Board Certified Radiologist. This report was verified electronically.
--- NOTE | 2016-09-01 14:14 | RADHPO ---
EXAM DATE/TIME: 09/01/2016 12:23 [facility] COMPARISON: No previous studies available for comparison. INDICATIONS : TIA. Upper extremity and facial numbness. Aphasia. MEDICAL HISTORY : Hypertension. Diabetes. SURGICAL HISTORY : Cholecystectomy. Tonsillectomy. Appendectomy. Left TKA. Cataract removal. ENCOUNTER: Subsequent ACUITY: 2 day PAIN SCORE: 0/10 LOCATION: cranial Please note a normal MRA of the brain does not entirely exclude the possibility of a small aneurysm, nor the possibility of distal intracranial vessel disease. TECHNIQUE: 3D time of flight MRA was performed. Source images, multiplanar STS MIP, and 3D volume MIP reconstru ctions were reviewed. FINDINGS: There is excellent visualization of the major intracranial arteries out to the second-order branch ve ssels. There is no evidence for aneurysm, vessel truncation or stenosis, and no evidence for vascula r malformation. CONCLUSION: Normal examination. Facundo Rainey MD on September 01, 2016 at 14:11 Board Certified Radiologist. This report was verified electronically.
[2016-09-01 15:46] LABS: HEMOGLOBIN A1a 1.6 %; HEMOGLOBIN Ao 80.9 %; HEMOGLOBIN F 2.2 %; HEMOGLOBIN LA1C 2.1 %; HEMOGLOBIN P3 3.9 %
--- NOTE | 2016-09-01 16:30 | RADHPO ---
EXAM DATE/TIME: 09/01/2016 15:50 [place] COMPARISON: No previous studies available for comparison. INDICATIONS : Increased lab values. MEDICAL HISTORY : Hypercholesterolemia. Hypothyroidism. Gastroesophageal reflux disease. Rheumatic fever. Hypertension. Ulcer. Chlamydia. Endometriosis. Osteoarthritis. Diabetes. Rubella. SURGICAL HISTORY : Tonsillectomy. Appendectomy. Cholecystectomy. D&C. Fertility surgery. Right breast lumpectomy. ENCOUNTER: Initial ACUITY: 1 day PAIN SCORE: 9/10 LOCATION: Right upper quadrant MEASUREMENTS: LIVER: 20.0 cm length COMMON DUCT: 5 mm RIGHT KIDNEY: 11.2 x 4.2 x 5.1 cm SPLEEN: 10.8 cm length FINDINGS: LIVER: There is increased echogenicity throughout the liver suggestive of fatty infiltration and/or hepatoce llular disease. The portal system is patent. There is no evidence of ascites. COMMON DUCT: No intraluminal mass or stone visualized. GALLBLADDER: Removed PANCREAS: The visualized portions are within normal limits. However, there is some dilatation of the pancreati c duct at 5 mm. RIGHT KIDNEY: No hydronephrosis, stone or mass. SPLEEN: No focal lesion. CONCLUSION: 1. The liver is diffusely enlarged. There is increased echogenicity characteristic of fatty infiltrat ion and/or hepatocellular disease. No biliary tract obstruction.2. Nonspecific dilatation of the panc reatic duct to 5 mm. Brice Paris MD on September 01, 2016 at 16:26 Board Certified Radiologist. This report was verified electronically.
--- NOTE | 2016-09-01 16:40 | HHI.DCPOC ---
Discharge Care Plan Diagnosis: (1) TIA (transient ischemic attack) Goals to Promote Your Health * To prevent worsening of your condition and complications * To maintain your health at the optimal level Directions to Meet Your Goals Take your medications as prescribed Follow your dietary instruction Follow activity as directed Keep your appointments as scheduled Take your immunizations and boosters as scheduled If your symptoms worsen call your PCP, if no PCP go to Urgent Care Center or Emergency Room Smoking is Dangerous to Your Health. Avoid second hand smoke Call the 24-hour hour crisis hotline for domestic abuse at Trang Castañeda MD Sep 01, 2016 16:40
--- NOTE | 2016-09-01 17:25 | EKG ---
Date Performed: 08/31/2016 Time Performed: 16:32:48 PTAGE: 71 years EKG: Sinus rhythm Inferior/lateral ST-T changes are nonspecific Borderline ECG PREVIOUS TRACING : 03/27/2012 15.59 Since previous tracing, no significant change noted DOCTOR: Kailey Ovalle Interpretating Date/Time 09/01/2016 17:18:04
--- NOTE | 2016-09-02 12:29 | EC ---
Study Study Date:09/01/2016 STUDY CONCLUSIONS SUMMARY - Left ventricle: The cavity size was normal. Wall thickness was normal. Systolic function was normal. The estimated ejection fraction was in the range of 50% to 55%. Wall motion was normal; there were no regional wall motion abnormalities. - Left atrium: The atrium was mildly dilated. If LV function is below 40, please consider prescribing an ACEI or ARB or document rationale for non-use. PROCEDURE DATA STUDY STATUS: Elective. Procedure: Transthoracic echocardiography. Image quality was good. Scanning was performed from the parasternal, apical, and subcostal acoustic windows. Study completion: The patient tolerated the procedure well. Transthoracic echocardiography. M-mode, complete 2D, complete spectral Doppler, and color Doppler. Patient status: Inpatient. CARDIAC ANATOMY LEFT VENTRICLE: The cavity size was normal. Wall thickness was normal. Systolic function was normal. The estimated ejection fraction was in the range of 50% to 55%. Wall motion was normal; there were no regional wall motion abnormalities. AORTIC VALVE: Trileaflet; normal thickness leaflets. Doppler: Transvalvular velocity was within the normal range. There was no stenosis. No regurgitation. AORTA: Aortic root: The aortic root was normal in size. MITRAL VALVE: Structurally normal valve. Doppler: Transvalvular velocity was within the normal range. There was no evidence for stenosis. No regurgitation. LEFT ATRIUM: The atrium was mildly dilated. RIGHT VENTRICLE: The cavity size was normal. Wall thickness was normal. PULMONIC VALVE: Doppler: Transvalvular velocity was within the normal range. There was no evidence for stenosis. No regurgitation. TRICUSPID VALVE: Structurally normal valve. Doppler: Transvalvular velocity was within the normal range. No regurgitation. PULMONARY ARTERY: The main pulmonary artery was normal-sized. Systolic pressure was within the normal range. RIGHT ATRIUM: The atrium was normal in size. PERICARDIUM: There was no pericardial effusion. SYSTEMIC VEINS: Inferior vena cava: The vessel was normal in size. Prepared and signed by Angel Lange [id number]
== END 2016-09-01 18:00 | disposition home or self-care (01) | DRG 69 ==
LOC: PHED 15:59 → PHEDA 19:27 → OBSVTOIN 19:27 → UNDOADMOB 19:42 → INTOOBSV 19:42 → PHEDA 19:42 → PH3A 09-01 01:40 → UNDODISOB 09-01 18:00 → UNDODISIN 09-01 18:00
PROVIDERS: ADMIT Hospitalist; ATTEND Hospitalist
DX: G45.9 Transient cerebral ischemic attack, unspecified (principal); M31.30 Wegener's granulomatosis without renal involvement; K76.0 Fatty (change of) liver, not elsewhere classified; Z68.42 Body mass index [BMI] 45.0-49.9, adult; I10 Essential (primary) hypertension; E66.9 Obesity, unspecified; E11.9 Type 2 diabetes mellitus without complications; E03.9 Hypothyroidism, unspecified; K21.9 Gastro-esophageal reflux disease without esophagitis; M79.7 Fibromyalgia; J45.909 Unspecified asthma, uncomplicated; J44.9 Chronic obstructive pulmonary disease, unspecified; R94.5 Abnormal results of liver function studies; G89.29 Other chronic pain; Z79.84 Long term (current) use of oral hypoglycemic drugs; Z79.82 Long term (current) use of aspirin; Z87.891 Personal history of nicotine dependence
CPT/HCPCS: 70450; 70544; 70551; 76705; 80053; 80061; 82948; 83036; 84484; 85025; 85610; 85730; 93005; 93306; J1815; J2405; J7030; J7512